=== PATIENT | female | born 1960 | race Caucasian/White ===

== ENCOUNTER 2024-05-26 19:02 | Emergency (ER) | payer SELFPAY ==
[~2024-05-26] VITALS: Ht 162.6 cm; Wt 91.0 kg
[2024-05-26] MEDS ORDERED: MORPHINE SULFATE 4 MG/ML VIAL IM ONE (19:40)
[2024-05-26] MEDS ORDERED: ONDANSETRON 4 MG/TAB ODT SL ONE (19:40)
[2024-05-26 20:31] VITALS: BP 135/70
[2024-05-26] MEDS ORDERED: CELEBREX200 MG PO (21:37)
[2024-05-26] MEDS ORDERED: FLEXERIL5 M1 PO (21:37)
[2024-05-26 22:00] VITALS: BP 135/70
== END 2024-05-26 22:00 | disposition home or self-care (01) | DRG 552 ==
LOC: ED 19:02
DX: M54.2 Cervicalgia (principal); E11.9 Type 2 diabetes mellitus without complications; E03.9 Hypothyroidism, unspecified; I10 Essential (primary) hypertension